=== PATIENT | male | born 1980 | race Caucasian/White ===

== ENCOUNTER 2018-08-23 08:37 | Outpatient (REF) | payer SELFPAY ==
[2018-08-23 14:01] LABS: Cholesterol 191 mg/dL (50-200); Glucose 94 mg/dL (70-100); HDL Cholesterol 45 mg/dL (40-60); LDL CHOLESTEROL 122 mg/dL (<100); Triglyceride 193 mg/dL (30-150)
== END 2018-08-23 08:57 ==
LOC: NCHCN 08:37
PROVIDERS: PCP Family Medicine; Visit Provider Family Medicine
DX: Z13.220 Encounter for screening for lipoid disorders (principal); Z00.00 Encounter for general adult medical examination without abnormal findings; Z13.1 Encounter for screening for diabetes mellitus
CPT/HCPCS: 80061; 82947; 83721

== ENCOUNTER 2018-10-28 00:31 | Emergency (ER) | payer SELFPAY ==
[2018-10-28 00:52] VITALS: TEMP 37.1
--- NOTE | 2018-10-28 00:58 | W.ED.GENAD ---
Discharge Plan Disposition Patient Disposition: OTHER Discharge Details Chief Complaint: PsychEval Clinical Impression: Alcohol intoxication Primary Care Provider: [facility] ED Provider: Ethan Thornton Home Meds and New Rx's Prescriptions: No Action citalopram 40 MG tablet 40 mg PO DAILY RF: 0 dicyclomine 20 MG tablet 20 mg PO QID RF: 0 acyclovir 200 MG capsule 400 mg PO Q8H PRN RF: 0 ADVIL 200 MG capsule 200 - 400 mg PO Q6H PRN RF: 0 Lidocaine Cream 3% 1 syringe Topical Q12H PRN RF: 0 ranitidine HCl [Zantac 75] 75 MG tablet 1 tab PO BID RF: 0 comntps-dpmmlyboibepi-bytdhlmf [Excedrin Migraine] 1 EACH tablet 2 tab PO PRN PRN (Reason: Headache) RF: 0 oxycodone 5 MG tablet 5 - 10 mg PO Q4H PRN PRN (Reason: Pain) Qty: 40 RF: 0 mineral oil [Mineral Oil Heavy] 30 ML oil 30 ml PO DAILY Qty: 1 RF: 6 docusate sodium [Colace] 100 MG capsule 100 mg PO BID Qty: 60 RF: 1 Discharge Instructions Instructions: Alcohol Intoxication (ED) Additional Instructions: Please stop drinking alcohol. You are being placed back into police custody to sober up at this time. If you continue to have any thoughts of self-harm, he will be reassessed by mental health at the police facility, please feel free to return immediately for reassessment here. Referrals: [facility] [Primary Care Provider] - Medical Decision Making This is a 38-year-old male with past medical history of irritable bowel syndrome, herpes, who presents today for evaluation of intoxication and mental health eval. Per family, the patient and police the patient was drinking an excessive amount of alcohol today. He blew 1 7 per police, and had made multiple calls to 911 with complaints of sadness, sobbing, and a complaint of self-harm. And police arrived he was curled in the position crying on the side of the road with his car. He was brought into the ER for further evaluation. He is noted to be notably intoxicated. Here in the ED he makes no complaints of self-harm, suicidal ideation, or homicidal ideation. He is notably confrontational and intoxicated. He is very aggressive towards nursing staff, flailing about, and a danger to others. For the safety of nursing staff patient was temporarily placed in restraints. He is still in police custody. Patient refuses to talk to me, but through the interactions between he, the police, and nursing staff he continues to deny any focal suicidal ideation. At this time medical screening exam was performed and demonstrated no concerning life-threatening abnormalities on exam aside for notable intoxication. No signs of significant trauma, or other concerning components. With no clear signs of suicidal ideations at this time, and notably intoxicated patient had a benign medical screening exam we have turned to mental health for further evaluation. Pending their evaluation, I feel that the patient can be appropriately transferred back to police custody, for drunk tank placement and observation by mental health there. Mental health has come and seen and assessed the patient, they feel that at this time the patient can be appropriately dispositioned to the drunk tank, remaining in police custody. For the safety of the patient, and staff at this time of night, I do feel that this is the most appropriate plan of action for the patient. In fact he shows no clear signs of self-harm at this time, however he does need reassessment upon clinical sobriety. Mental health has agreed with this plan, and will follow the patient closely. I have extensively reviewed the treatment plan and discharge instructions with the patient and their family. I have addressed all patient concerns at this time. Discussed the plan with the patient and family, they demonstrate verbal understanding and agreement with our assessment and plan at this time. HPI General Date/Time Provider Initiated Documentation: 10/28/18 00:32. HPI Narrative: This is a 38-year-old male with a past medical history of herpes, irritable bowel syndrome, who presents today being brought by police for further evaluation of mental health crisis. The patient has been drinking an excessive amount of alcohol today and then went and drove around making various 911 because sobbing, and discussing various topics. At one point to 911 he said he wanted to end it all, please were dispatched and when they found him he was crawled up in the position crying. Since then he has not made a claim of suicidal ideations but reiterates various points of wanting a fucking cigarette, I do not want to kill myself I just want to get out of here and other various comments clearly fueled by intoxication. The patient's mother who is here states that he often gets like this when he drinks, but per her has never tried to harm himself or kill himself in the past. She denies any significant previous suicide attempts. She states that he just gets this way when he gets notably drunk. At this time the mother states that he has not told her he wanted to kill himself. He did mention that he want to get in a car crash, but not in an effort to end his life. No other complaints at this time. No other modifying factors. Related Data Home Medications Medication Instructions Recorded Confirmed acyclovir 400 mg PO Q8H PRN tab-cap NS 10/01/12 06/28/14 citalopram 40 mg PO DAILY NS 10/01/12 06/28/14 dicyclomine 20 mg PO QID tab-cap NS 10/01/12 06/28/14 Advil 200 - 400 mg PO Q6H PRN tab-cap NS 10/22/12 06/28/14 ranitidine HCl [Zantac 75] 1 tab PO BID 06/27/14 06/28/14 onfdplh-vihuavvuqicrl-rwjvlkpc 2 tab PO PRN PRN 06/28/14 06/28/14 [Excedrin Migraine] docusate sodium [Colace] 100 mg PO BID #60 cap 06/28/14 mineral oil [Mineral Oil Heavy] 30 ml PO DAILY #1 btl 06/28/14 oxycodone 5 - 10 mg PO Q4H PRN PRN #40 tab 06/28/14 Previous Rx's Medication Instructions Recorded docusate sodium [Colace] 100 mg PO BID #60 cap 06/28/14 mineral oil [Mineral Oil Heavy] 30 ml PO DAILY #1 btl 06/28/14 oxycodone 5 - 10 mg PO Q4H PRN PRN #40 tab 06/28/14 Allergies Allergy/AdvReac Type Severity Reaction Status Date / Time No Known Allergies Allergy Unverified 06/28/14 08:48 General Stated Complaint: PsychEval LOUISA: 2 Review of Systems Review of Systems All systems reviewed & are unremarkable except as noted in HPI and below PFSH Medical History Condyloma acuminatum due to human papillomavirus Depression Dysthymia Hemorrhoids, external IBS (irritable bowel syndrome) Surgical History Colonoscopy - IV Sedation Hemorrhoidal Banding Social History Smoking/Tobacco Use Status: Current every day Alcohol Intake: current Alcohol type: hard liquor Drug use: Never Details: Pt refusing to answer any questions at this time but per [facility] MELCHOR 0.1, pt states he had hard liquor tonight Additional Social history: Pt refuses to answer but called P after having thoughts of suicide tonight Exam Narrative Exam Narrative: 1.Const: Well-nourished, Well-developed, appearing stated age 2.Eyes: PERRL, no conjunctival injection, and symmetrical lids. 3.ENT: Atraumatic external nose and ears. Moist MM. Neck: Symmetric, trachea midline, No thyromegaly. 4.CVS: +S1/S2, No murmurs or gallops. Peripheral pulses 2+ and equal in all extremities. Brisk capillary refill in all extremities. 5.RESP: Unlabored respiratory effort. Clear to auscultation bilaterally. No wheezes rales or rhonchi 6.GI: Soft, Nontender/Nondistended, No hepatosplenomegaly. No guarding or rebound. 7.MSK: Normocephalic/Atraumatic, Extremities w/o deformity or ttp No cyanosis or clubbing, Normal movement of all extremities 8.Skin: Warm, Dry. No rashes or lesions. 9.Neuro: straight knife cutter machine II-XII grossly intact. Sensation grossly intact, no focal neurologic deficits. Notably intoxicated though 10.Psych: Notably intoxicated, aggressive, confrontational and violent. The patient is using notably cool and foul language towards nursing staff. However during his stay he has not made any comments of suicidal ideation, homicidal ideation, or inclination toward self-harm.
== END 2018-10-28 01:33 | disposition other institution (70) ==
PROVIDERS: Emergency Provider Student in an Organized Health Care Education/Training Program; PCP Family Medicine
DX: F10.14 Alcohol abuse with alcohol-induced mood disorder (principal)
CPT/HCPCS: 99285; 99284

== ENCOUNTER 2019-01-11 11:14 | Outpatient (REF) | payer SELFPAY ==
[2019-01-11 18:46] LABS: HCT 40.8 % (40.0-50.0); HGB 14.1 g/dL (13.5-17.5); Mean Corp. HGB Concentration 34.6 g/dL (32.0-36.0); Mean Corpuscular Hemoglobin 31.1 pg (27.0-33.0); Mean Corpuscular Volume 90.1 fL (80-95); Mean Platelet Volume 9.1 fL (8.0-11.0); Platelet Count 200 x1000/uL (130-400); RBC 4.53 m/cumm (4.50-6.00); RBC Distribution Width 12.1 % (11.8-14.1); White Blood Cell Count 5.41 k/cumm (4.4-10.8)
[2019-01-11 19:15] LABS: ALT 27 U/L (16-63); AST 15 U/L (15-37); Albumin 3.8 g/dL (3.4-5.0); Alkaline Phosphatase 65 U/L (46-116); Anion Gap 8.5 mmol/L (3-11); BUN 15 mg/dL (7-18); Bilirubin, Total 0.4 mg/dL (0.2-1.0); CO2 28.5 mmol/L (21.0-32.0); CREATININE 0.88 mg/dL (0.70-1.30); Calcium 8.9 mg/dL (8.5-10.1); Chloride 105 mmol/L (98-107); Glucose 94 mg/dL (70-100); Potassium 4.4 mmol/L (3.5-5.1); Sodium 142 mmol/L (136-145); Total Protein 6.8 g/dL (6.4-8.2); Vitamin B12 501 pg/mL (193-986)
== END 2019-01-11 11:34 ==
LOC: NCHCN 11:14
PROVIDERS: PCP Family Medicine; Visit Provider Family Medicine
DX: F10.11 Alcohol abuse, in remission (principal); Z87.19 Personal history of other diseases of the digestive system
CPT/HCPCS: 80053; 85027; 82607

== ENCOUNTER 2019-01-17 00:50 | Outpatient (CLI) | payer SELFPAY ==
--- NOTE | 2019-01-17 10:19 | DI.RAD_ITS ---
EXAM: XR ELBOW LT COMPLETE INDICATION: ELBOS JOINT PAIN M25.522, OLECRANON TENDERNESS AND LIMITED ROM 14 MO AFTER. COMPARISON: No exams were available for comparison TECHNIQUE: 2D digital imaging was performed. FINDINGS: There is a deformity of the articular surface of the radial head. The finding is most suggestive of an old head fracture. No acute or dislocation is identified. Mild degenerative changes are seen at the elbow. The bones are normally mineralized. The soft tissues are unremarkable. IMPRESSION: Findings suggestive of an old left radial head fracture. Mild degenerative changes of the left elbow.
== END 2019-01-17 01:10 ==
PROVIDERS: PCP Family Medicine; Visit Provider Family Medicine
DX: M25.522 Pain in left elbow (principal); M19.022 Primary osteoarthritis, left elbow; Z87.81 Personal history of (healed) traumatic fracture
CPT/HCPCS: 73080

== ENCOUNTER 2022-08-18 15:11 | Outpatient (REF) | payer BC, SELFPAY ==
[2022-08-18 15:01] LABS: Abs Immature Grans 0.03 10^3/uL (0.0-0.06); Absolute Basophil Count 0.03 10^3/uL (0.0-0.2); Absolute Eosinophil Count 0.07 10^3/uL (0.0-0.7); Absolute Monocyte Count 0.32 10^3/uL (0.1-0.8); Absolute Neutrophil Count 3.15 10^3/uL (1.2-6.7); Basophils % 0.6; Eosinophils % 1.5; HCT 44.4 % (40.0-50.0); Immature Grans % 0.6; Lymphocytes % 23.4; MCH 29.3 pg (27.0-33.0); MCHC 33.8 % (32.0-36.0); MCV 87 fL (80-95); MPV 9.3 fL (8.0-11.0); Monocytes % 6.8; Neutrophils % 67.1; Platelet Count 204 10^3/uL (130-400); RBC 5.12 10^6/uL (4.36-5.78); RDW 11.9 % (11.8-14.1); RDW-SD 38.3 fL
[2022-08-18 16:08] LABS: ALT 28 U/L (16-63); AST 16 U/L (15-37); Alkaline Phosphatase 76 U/L (46-116); Anion Gap 7.9 mmol/L (3-11); BUN 14 mg/dL (7-18); Bilirubin, Total 0.7 mg/dL (0.2-1.0); CO2 29.1 mmol/L (21.0-32.0); Calcium 9.2 mg/dL (8.5-10.1); Calculated LDL 115 mg/dL (<100); Chloride 103 mmol/L (98-107); Cholesterol 182 mg/dL (<200); Estimated GFR 97.58 (mL/min/1.73m2); Glucose 102 mg/dL (74-106); HDL Cholesterol 44 mg/dL (40-60); Potassium 4.2 mmol/L (3.5-5.1); Sodium 140 mmol/L (136-145); TSH (W/Ref FT4) 1.65 uIU/mL (0.36-3.74); Total Protein 7.5 g/dL (6.4-8.2); Triglyceride 115 mg/dL (<150)
[2022-08-19 10:47] LABS: HIV-1/2 Ag & Ab Screen Negative (Negative)
[2022-08-19 10:52] LABS: Hepatitis C Ab w Rflx HCV PCR Negative (Negative)
[2022-08-25 12:57] LABS: Calprotectin <50.0 mcg/g
== END 2022-08-18 15:12 | disposition home or self-care (01) ==
LOC: NCHCN 15:11
PROVIDERS: PCP Family Medicine; Visit Provider Family Medicine
DX: Z00.00 Encounter for general adult medical examination without abnormal findings (principal); R63.4 Abnormal weight loss
CPT/HCPCS: 80053; 80061; 86803; 87389; 83993; 84443; 85025

== ENCOUNTER 2022-12-15 16:52 | Outpatient (REF) | payer BC, SELFPAY ==
[2022-12-15 15:53] LABS: ESR 3 mm/hr (0-15)
[2022-12-16 15:33] LABS: IgA 245 mg/dL (85-499); Interpretation (See Note); Tissue Transglutaminase IgA <1.2 U/mL (<4.0)
== END 2022-12-15 16:53 | disposition home or self-care (01) ==
LOC: NCHCN 16:52
PROVIDERS: PCP Family Medicine; Visit Provider Family Medicine
DX: R63.4 Abnormal weight loss (principal); K58.9 Irritable bowel syndrome, unspecified
CPT/HCPCS: 82784; 83516; 85652

== ENCOUNTER → 2022-12-24 02:16 | Outpatient (CLI) | payer BC, SELFPAY ==
--- NOTE | 2022-12-24 | DI.RAD_ITS ---
Exam(s) XR CHEST 2V PA LATERAL EXAM: XR CHEST 2V PA LATERAL CLINICAL HISTORY: WEIGHT LOSS R63.4 SMOKER F17.200 TECHNIQUE: 2D digital imaging was performed of the chest. Two images were obtained. PA and lateral views were obtained. COMPARISON: No exams were available for comparison FINDINGS: MEDIASTINUM: Normal. HEART: Normal. PULMONARY VASCULATURE: Normal. LUNGS: Clear. PLEURAL SPACE: No pleural effusion or pneumothorax. BONE:Within normal limits for the patient's age. OTHER FINDINGS:Normal. IMPRESSION: No acute pulmonary findings. DATA REPOSITORY: RADIATION DOSE DELIVERED:
== END ==
PROVIDERS: PCP Family Medicine; Visit Provider Family Medicine
DX: R63.4 Abnormal weight loss (principal); F17.210 Nicotine dependence, cigarettes, uncomplicated
CPT/HCPCS: 71046

== ENCOUNTER 2025-03-21 19:15 | Outpatient (REF) | payer BC, SELFPAY ==
[2025-03-21 19:29] LABS: ALT 17 U/L (10-49); AST 21 U/L (<34); Albumin 4.2 g/dL (3.2-5.0); Alkaline Phosphatase 60 U/L (46-116); Anion Gap 6.7 mmol/L (3-11); BUN 13 mg/dL (9-23); Bilirubin, Total 0.40 mg/dL (0.2-1.2); CO2 30.3 mmol/L (20.0-31.0); Calcium 8.9 mg/dL (8.3-10.6); Chloride 107 mmol/L (98-107); Cholesterol 163 mg/dL (<200); Glucose 68 mg/dL (74-106); HDL Cholesterol 54 mg/dL (>40); Potassium 4.3 mmol/L (3.5-5.1); Sodium 144 mmol/L (136-145); Total Protein 6.8 g/dL (5.7-8.2)
== END 2025-03-21 19:16 | disposition home or self-care (01) ==
LOC: NCHCN 19:15
PROVIDERS: PCP Family Medicine; Visit Provider Nurse Practitioner Family
DX: Z00.00 Encounter for general adult medical examination without abnormal findings (principal)
CPT/HCPCS: 80053; 80061